=== PATIENT | female | born 1960 | race Caucasian/White ===

== ENCOUNTER 2023-10-14 11:10 | Emergency (ER) | payer OTHER, SELFPAY ==
[2023-10-14 11:22] VITALS: BP 152/82
[2023-10-14 12:38] VITALS: BMI 39.5
[2023-10-14 12:40] LABS: % Basophils 0.7 % (0-2); % Eosinophils 4.8 % (0-6); % Immature Granulocytes 0.3 % (0-0.5); % Lymphocytes 27.5 % (20.5-51.1); % Monocytes 8.3 % (1.7-9.3); % Neutrophils 58.4 % (42.2-75.2); Absolute Basophils 0.1 10^3/uL (0-0.2); Absolute Eosinophils 0.3 10^3/uL (0-0.7); Absolute Lymphocytes 1.9 10^3/uL (1.2-3.4); Absolute Monocytes 0.6 10^3/uL (0.1-0.6); Absolute Neutrophils 3.9 10^3/uL (1.4-6.5); Hematocrit 33.6 % (37.0-47.0); Mean Corp Hgb Conc. 32.7 g/dL (33.0-37.0); Mean Corpuscular Hgb 28.5 pg (27.0-31.0); Mean Platelet Volume 11.1 fL (7.4-10.4); Nucleated Red Blood Cells % 0 %; Platelet Count 225 10^3/uL (130-400); Red Blood Cell Count 3.86 10^6/uL (4.20-5.40); Red Cell Dist. Width 13.6 % (11.5-14.5); White Blood Cell Count 6.7 10^3/uL (4.8-10.8)
[2023-10-14 13:00] VITALS: BP 122/56
[2023-10-14 13:07] LABS: ALT (SGPT) 27 U/L (0-35); AST (SGOT) 32 U/L (14-36); Albumin 4.3 g/dl (3.5-5.0); Alkaline Phosphatase 72 U/L (38-126); Blood Urea Nitrogen 23 mg/dl (7-17); Calcium 9.3 mg/dl (8.4-10.2); Carbon Dioxide 25 mmol/L (22-30); Chloride 105 mmol/L (98-107); Estimated Creatinine Clearance 74 ml/min; Glucose 145 mg/dl (70-99); Potassium 4.1 mmol/L (3.5-5.1); Sodium 139 mmol/L (135-145); Total Bilirubin 0.5 mg/dl (0.2-1.3); Total Protein 6.9 g/dl (6.3-8.2); eGFR > 60.00
[2023-10-14 13:10] LABS: Troponin I 0.029 ng/ml
--- NOTE | 2023-10-14 16:23 | ED.GENMED ---
History of Present Illness
General
Chief Complaint: Chest Pain
Source: patient
Exam Limitations: none
Time Seen by Provider: 10/14/23 11:58
Nursing documentation reviewed up to this point in time: agreed with
Travel History
Have you had any contact with someone who has COVID-19?: No
Do you have any symptoms of coronavirus? Fever > 100 degrees, chills, cough, shortness of breath, sore throat, loss of taste or smell, muscle aches, or headache?: No
History of Present Illness
History of Present Illness:
63-year-old female past medical history of A-fib hypertension diabetes presenting to the emergency department today with concerns of chest discomfort that occurred upon awakening in the middle of the night last night roughly 12 hours prior to
arrival to the emergency department. She claims that she slept on her left arm she woke up with numbness to the left arm which resolved after few minutes she is noticed achiness to the left chest since more with palpation. Denies any shortness of
breath nausea vomiting or diaphoresis. Denies rashes
Past History
Past History
ED Past Medical History: Asthma, CAD, HTN and NIDDM
ED Past Surgical History: Cardiac and Other (lumpectomy)
Patient has exhibited threatening behavior?: No
PSI?: No
Social History
Tobacco: Non-smoker
Alcohol: None
Drug: None
Personal:
Living: with family
Family History
Family History: Negative Diabetes, Hypertension or CAD
Review of Systems
Review of Systems
Allergies reviewed?: Yes
All Other Systems: ROS reviewed and negative except as documented in HPI and ROS
Phy Exam
Physical Exam
Physical Exam:
GENERAL: Alert , in no apparent distress
EYE: pupils equal and reactive
NECK: Supple, no significant adenopathy.
ENT: o/p clr, mmm.
CARDIAC: Discomfort to left chest wall no overlying rash regular rate and rhythm .
LUNGS: Clear breath sounds bilaterally, no acute respiratory distress, no wheezes/rales/rhonchi
ABDOMEN: Soft, without focal tenderness, no r/g, no cvat
NEUROLOGICAL: Alert and oriented, no focal neuro deficits
SKIN: Warm and dry, skin intact.
MUSCULOSKELETAL: No edema, well perfused.
PSYCH: Normal and appropriate interaction.
Scores
Heart Score for Chest Pain Patients
STEMI patient?: No
History: Slightly or Non-Suspicious
ECG: Nonspecific Repolarization
Age: >/= 65 years
Risk Factors: >/= 3 Risk Factors or History of CAD
Troponin: </= Normal Limit
Heart Score for Chest Pain Patients: 5
Heart Score Risk: 20.3% MACE over next 6 weeks
Course
Orders/Labs/Results
Orders:
Orders
10/14/23 11:21
Electrocardiogram (*1) Urgent
Reason for Study: Chest Pain
10/14/23 11:22
EKG- Treatment ONCE
10/14/23 12:14
CR Chest - 2 Views Urgent
Comment:
Reason For Exam: chest pain
10/14/23 12:33
Complete Blood Count/With Diff Urgent
Comprehensive Metabolic Panel Urgent
Magnesium Urgent
Troponin I Urgent
Abnormal Lab Results
10/14/23
12:33
RBC 3.86 L 10^6/uL
(4.20-5.40)
Hgb 11.0 L g/dL
(12.0-16.0)
Hct 33.6 L %
(37.0-47.0)
MCHC 32.7 L g/dL
(33.0-37.0)
MPV 11.1 H fL
(7.4-10.4)
BUN 23 H mg/dl
(7-17)
Glucose 145 H mg/dl
(70-99)
10/14/23 12:33
10/14/23 12:33
Vital Signs
Initial and Last Documented VS:
Initial Vital Signs
Temp Pulse Resp BP Pulse Ox
98.1 F 78 16 152/82 98
10/14/23 11:22 10/14/23 11:22 10/14/23 11:22 10/14/23 11:22 10/14/23 11:22
Last Documented Vital Signs
Temp Pulse Resp BP Pulse Ox
98.1 F 65 20 122/56 98
10/14/23 11:22 10/14/23 13:45 10/14/23 13:15 10/14/23 13:00 10/14/23 13:45
MDM/Problems Addressed
MDM/Problems Addressed:
63-year-old female presenting to the emergency department today with concerns of left chest today described as achy mainly with palpation to the left chest wall very minimal when not moving. Also had left arm heaviness and numbness after awakening
after she was laying on her left arm last night. Arrival vital signs are normal EKG without ischemic changes troponin negative labs unremarkable chest x-ray without emergent findings findings of atelectasis described to the patient. No signs of
emergent process does not appear to be consistent with ACS very reproducible likely skeletal but advised for close outpatient follow-up with cardiology return precautions were given.
*Critical Care Note
Total Time (30-74mins, 75-104mins- exclusive of procedures): Not Applicable
ED Attending Note
-
Portions of this chart may have been created with voice recognition software.� Occasional wrong word or��sound alike� substitutions may have occurred due to the inherent limitations of voice recognition software.
Discharge Plan
Departure
Patient Disposition: Home (Routine Discharge)
Date of Disposition: 10/14/23
Time of Disposition: 16:23
Patient with high blood pressure during this ER visit?: No
Condition: Good
Covid-19: Not Applicable
Discharge Problem:
Chest pain
Instructions: Chest Pain CBC Follow Up
Prescriptions:
No Action
Eliquis 5 MG tablet
5 mg PO BID Qty: 90 0RF
indapamide 2.5 mg Tablet
2.5 mg PO QNOON
perindopril erbumine 8 mg Tablet
8 mg PO QNOON
atorvastatin 40 mg tablet
40 mg PO QPM Qty: 90 10RF
nitroglycerin 0.4 mg tablet, sublingual
0.4 mg sublingual [id number] PRN (Reason: chest pain) Qty: 25 5RF
clopidogrel 75 mg tablet
75 mg PO DAILY Qty: 90 10RF
metformin 500 MG tablet
1,000 mg PO DAILY Qty: 0 0RF
Referrals:
Vern Guillermo MD [Family Provider] -
Activity Restrictions/Additional Instructions:
You can to the emergency department today with concerns of chest discomfort. Here you had a reassuring assessment. Please follow closely with cardiology. Return to the emergency department for any worsening, new or concerning symptoms.
Interventions
Interventions:
*Risk Screen - Suicide Last Done: 10/14/23 12:30
*General Assessment Last Done: 10/14/23 12:30
*Neglect/Abuse Screening Last Done: 10/14/23 12:30
*ED COVID-19 Vaccine History Last Done: 10/14/23 12:30
ED- Cardiac Assessment Last Done: 10/14/23 12:30
Discharge Date and Time
Print Language: Beninese
[2023-10-14 16:53] VITALS: BP 124/62
== END 2023-10-14 16:57 | disposition home or self-care (01) ==
LOC: EMR 11:10
PROVIDERS: Physician Assistant; EMERGENCY PHYSICIAN Emergency Medicine; FAMILY PHYSICIAN Internal Medicine
DX: R07.89 Other chest pain (principal); I48.91 Unspecified atrial fibrillation; E11.9 Type 2 diabetes mellitus without complications; I25.10 Atherosclerotic heart disease of native coronary artery without angina pectoris; I10 Essential (primary) hypertension; J45.909 Unspecified asthma, uncomplicated; Z95.2 Presence of prosthetic heart valve
CPT/HCPCS: 99283; 71046; 80053; 83735; 84484; 85025; 93005

== ENCOUNTER → 2025-03-11 10:44 | Outpatient (REF) | payer OTHER, SELFPAY | LOC: RAD 10:44 | PROVIDERS: ATTENDING PHYSICIAN Internal Medicine | DX: R10.9 Unspecified abdominal pain (principal) | CPT/HCPCS: 76700 ==